=== PATIENT | female | born 1940 | race Two or more races ===

== ENCOUNTER → 2019-07-19 | Outpatient (CLI) | payer OTHER ==
[~2019-07-19] MED LIST: ALBU3IS INH; ALBU90OI; ALBU90OI INH; ALBUIS; ALEN70; ALPR.25; ALPR.25 PO; ALPR.5; ALPR.5 PO; ALTACE PO; AMLO10 PO; AMLO5 PO; ASPI81CH PO; Alprazolam0.5 MG PO; BUDE6HFA; BUDE6HFA INH; CEPH500 PO; CHOL10002 PO; CLOB.05TC TOP; DELTASONE20 MG PO; DOC250 PO; DOCU100 PO; ENOX40I SC; ERGO400; ERGO400 PO; FISH1000 PO; HYDR1TAB94 PO; LEVO750 PO; LOSA50 PO; METF500; METF500 PO; MULTI VITAMIN1 EACH PO; MULVITMIND PO; NASACORT10.8 ML; OXYC5 PO; PARO20 PO; PSETRI; Pyridium200 MG PO; RAMI5; RAMI5 PO; RXPRED10; SIMV10 PO; TIOT18 IH; TRIHYD253A; VITAMIN D3 PO; WARF4 PO
[2019-07-19 13:05] LABS: BASOPHILS ABSOLUTE AUTO 0.12 K/mm3 (0.00-0.23); BASOPHILS PERCENT AUTO 1 % (0-2); EOSINOPHILS ABSOLUTE AUTO 1.23 K/mm3 (0.00-0.68); EOSINOPHILS PERCENT AUTO 12 % (0-6); Hematocrit 35.8 % (33.0-51.0); Hemoglobin 11.9 g/dL (11.5-16.0); IMMATURE GRAN ABSOLUTE AUTO 0.03 K/mm3 (0.00-0.10); IMMATURE GRAN PERCENT AUTO 0 % (0-1); LYMPHOCYTES ABSOLUTE AUTO 2.24 K/mm3 (0.84-5.20); LYMPHOCYTES PERCENT AUTO 23 % (21-46); MONOCYTES ABSOLUTE AUTO 0.92 K/mm3 (0.16-1.47); MONOCYTES PERCENT AUTO 9 % (4-13); Mean Corpuscular HGB 29.2 pg (26.0-34.0); Mean Corpuscular HGB Conc 33.2 g/dL (31.5-36.5); Mean Corpuscular Volume 88 fL (80-100); Mean Platelet Volume 9.2 fL (9.1-12.4); NEUTROPHILS ABSOLUTE AUTO 5.39 K/mm3 (1.96-9.15); NEUTROPHILS PERCENT AUTO 54 % (41-73); Platelet Count 350 K/mm3 (150-400); RDW Coefficient Variation 13.4 % (11.7-14.2); RDW Standard Deviation 42.7 fL (35.1-46.3); Red Blood Cell Count 4.08 M/mm3 (3.80-5.20); White Blood Cell Count 9.93 K/mm3 (4.00-11.30)
[2019-07-19 13:15] LABS: Alanine Aminotransfer (ALT/SGP 20 U/L (12-78); Albumin, Blood 3.9 g/dL (3.4-5.0); Alk Phos 74 U/L (40-126); Anion Gap 12 mmol/L (6-16); Aspartate Aminotrans (AST/SGOT 20 U/L (12-37); Bilirubin, Total 0.3 mg/dL (0.1-1.0); Blood Urea Nitrogen 14 mg/dL (8-24); Bun/Creatinine Ratio 18.4 (12.0-20.0); CO2, Blood 25 mmol/L (21-32); Calcium, Blood 9.5 mg/dL (8.5-10.1); Chloride, Blood 99 mmol/L (98-108); Creatinine, Blood 0.76 mg/dL (0.40-1.00); Globulin, Blood 3.8 g/dL (2.2-4.0); Glomerular Filtration Rate >60 (60-); Glucose, Blood 94 mg/dL (70-99); Potassium, Blood 4.1 mmol/L (3.5-5.5); Sodium, Blood 136 mmol/L (136-145); Total Protein, Blood 7.7 g/dL (6.4-8.2)
== END ==
LOC: LAB SHORT 13:00 → LAB EV 13:00
PROVIDERS: Emergency Medicine
DX: J44.9 Chronic obstructive pulmonary disease, unspecified (principal)
CPT/HCPCS: 80053; 85025

== ENCOUNTER → 2021-02-02 | Outpatient (CLI) | payer OTHER ==
[2021-02-02 20:10] LABS: Alanine Aminotransfer (ALT/SGP 24 U/L (12-78); Albumin, Blood 4.1 g/dL (3.4-5.0); Albumin/Globulin Ratio 1.1 (0.8-1.8); Alk Phos 73 U/L (50-136); Anion Gap 9 mmol/L (6-16); Aspartate Aminotrans (AST/SGOT 19 U/L (12-37); Bilirubin, Total 0.4 mg/dL (0.1-1.0); Blood Urea Nitrogen 13 mg/dL (8-24); Bun/Creatinine Ratio 19.5 (12.0-20.0); CHOL/HDL RATIO 2.1; CO2, Blood 24 mmol/L (21-32); Calcium, Blood 9.4 mg/dL (8.5-10.1); Chloride, Blood 102 mmol/L (98-108); Cholesterol 199 mg/dL (50-200); Creatinine, Blood 0.67 mg/dL (0.40-1.00); Globulin, Blood 3.9 g/dL (2.2-4.0); Glomerular Filtration Rate >60 (60-); Glucose, Blood 95 mg/dL (70-99); HDL Cholesterol 93 mg/dL (>39); LDL/HDL RATIO 0.9; Low Density Lipoprotein Chol 85 mg/dL (0-110); Potassium, Blood 4.4 mmol/L (3.5-5.5); Sodium, Blood 135 mmol/L (136-145); Triglycerides 104 mg/dL (30-160); Very Low Density Lipoprot Chol 20 mg/dL (6-32)
[2021-02-03 11:55] LABS: BASOPHILS PERCENT AUTO 1 % (0-2); EOSINOPHILS PERCENT AUTO 4 % (0-6); Hematocrit 37.2 % (33.0-51.0); Hemoglobin 12.1 g/dL (11.5-16.0); IMMATURE GRAN ABSOLUTE AUTO 0.07 K/mm3 (0.00-0.10); IMMATURE GRAN PERCENT AUTO 1 % (0-1); LYMPHOCYTES ABSOLUTE AUTO 1.76 K/mm3 (0.84-5.20); LYMPHOCYTES PERCENT AUTO 15 % (21-46); MONOCYTES ABSOLUTE AUTO 0.87 K/mm3 (0.16-1.47); MONOCYTES PERCENT AUTO 8 % (4-13); Mean Corpuscular HGB 28.7 pg (26.0-34.0); Mean Corpuscular HGB Conc 32.5 g/dL (31.5-36.5); Mean Corpuscular Volume 88 fL (80-100); Mean Platelet Volume 9.8 fL (9.1-12.4); NEUTROPHILS PERCENT AUTO 72 % (41-73); Platelet Count 278 K/mm3 (150-400); RDW Coefficient Variation 13.4 % (11.7-14.2); RDW Standard Deviation 43.4 fL (35.1-46.3); Red Blood Cell Count 4.21 M/mm3 (3.80-5.20)
== END | disposition home or self-care (01) ==
LOC: LAB 17:40 → LAB SHORT 17:40 → LAB FUT 02-02 15:40
PROVIDERS: Nurse Practitioner Family
DX: E11.51 Type 2 diabetes mellitus with diabetic peripheral angiopathy without gangrene (principal); E11.69 Type 2 diabetes mellitus with other specified complication
CPT/HCPCS: 80053; 80061; 82043; 83036; 85025

== ENCOUNTER → 2022-08-03 | Outpatient (CLI) | payer OTHER ==
[2022-08-03 16:58] LABS: U Amphetamine Screen Not Detected; U Barbituate Screen Not Detected; U Benzodiazapine Screen DETECTED; U Buprenorphine Screen Not Detected; U Cannabinoids Screen Not Detected; U Cocaine Screen Not Detected; U Methadone Screen Not Detected; U Methamphetamine Screen Not Detected; U Opiates Screen DETECTED; U Oxycodone Screen Not Detected; U Phencyclidine Screen Not Detected; U Propoxyphene Screen Not Detected
== END | disposition home or self-care (01) ==
LOC: LAB SHORT 13:27 → LAB 13:27
PROVIDERS: Physician Assistant
DX: Z51.81 Encounter for therapeutic drug level monitoring (principal); Z79.899 Other long term (current) drug therapy

== ENCOUNTER → 2022-12-18 | Outpatient (CLI) | payer OTHER ==
[2022-12-18 18:28] LABS: BASOPHILS ABSOLUTE AUTO 0.08 K/mm3 (0.00-0.23); BASOPHILS PERCENT AUTO 1 % (0-2); EOSINOPHILS ABSOLUTE AUTO 0.55 K/mm3 (0.00-0.68); EOSINOPHILS PERCENT AUTO 7 % (0-6); Hematocrit 34.1 % (33.0-51.0); Hemoglobin 11.5 g/dL (11.5-16.0); IMMATURE GRAN ABSOLUTE AUTO 0.02 K/mm3 (0.00-0.10); IMMATURE GRAN PERCENT AUTO 0 % (0-1); LYMPHOCYTES PERCENT AUTO 18 % (21-46); MONOCYTES ABSOLUTE AUTO 0.66 K/mm3 (0.16-1.47); MONOCYTES PERCENT AUTO 8 % (4-13); Mean Corpuscular HGB 29.9 pg (26.0-34.0); Mean Corpuscular HGB Conc 33.7 g/dL (31.5-36.5); Mean Corpuscular Volume 89 fL (80-100); Mean Platelet Volume 9.5 fL (9.1-12.4); NEUTROPHILS ABSOLUTE AUTO 5.52 K/mm3 (1.96-9.15); NEUTROPHILS PERCENT AUTO 66 % (41-73); Platelet Count 268 K/mm3 (150-400); RDW Standard Deviation 41.9 fL (35.1-46.3); Red Blood Cell Count 3.84 M/mm3 (3.80-5.20); White Blood Cell Count 8.33 K/mm3 (4.00-11.30)
[2022-12-18 19:45] LABS: Very Low Density Lipoprot Chol 14 mg/dL (6-32)
[2022-12-18 20:06] LABS: Alanine Aminotransfer (ALT/SGP 21 U/L (12-78); Albumin, Blood 3.8 g/dL (3.4-5.0); Albumin/Globulin Ratio 1.1 (0.8-1.8); Alk Phos 63 U/L (50-136); Anion Gap 5 mmol/L (6-16); Aspartate Aminotrans (AST/SGOT 20 U/L (12-37); Bilirubin, Total 0.3 mg/dL (0.1-1.0); Blood Urea Nitrogen 14 mg/dL (8-24); Bun/Creatinine Ratio 14.4 (12.0-20.0); CHOL/HDL RATIO 1.7; CO2, Blood 23 mmol/L (21-32); Calcium, Blood 9.2 mg/dL (8.5-10.1); Chloride, Blood 102 mmol/L (98-108); Cholesterol 187 mg/dL (50-200); Creatinine, Blood 0.97 mg/dL (0.40-1.00); Globulin, Blood 3.6 g/dL (2.2-4.0); Glomerular Filtration Rate 58 (60-); Glucose, Blood 101 mg/dL (70-99); HDL Cholesterol 111 mg/dL (>39); LDL/HDL RATIO 0.6; Low Density Lipoprotein Chol 62 mg/dL (0-110); Potassium, Blood 4.7 mmol/L (3.5-5.5); Sodium, Blood 130 mmol/L (136-145); Total Protein, Blood 7.4 g/dL (6.4-8.2); Triglycerides 72 mg/dL (30-160)
== END ==
LOC: LAB 16:12 → LAB SHORT 16:12
PROVIDERS: Nurse Practitioner Family
DX: I10 Essential (primary) hypertension (principal); R73.03 Prediabetes; E78.2 Mixed hyperlipidemia
CPT/HCPCS: 80053; 80061; 83036; 85025

== ENCOUNTER 2024-04-09 16:51 | Observation (INO) | payer OTHER ==
[~2024-04-09] VITALS: Ht 165.1 cm; Wt 68.7 kg
[~2024-04-09 16:51] MED LIST changes: +ALPRAZOLAM0.5 M1 PO; +AMLODIPINE BESYL5 MG PO; +Acetaminophen325 M1 PO; +Aspir 8181 MG PO; +BUDESONIDE0.5 MG/2 M INH; +CELE100 PO; +CYMBALTA20 M2 PO; +HYDROCODONE-AC1 EAC7 PO; +IPRAT-ALBUT 0.5-3 ML; +MELO7.5 PO; +MIRALAX17 GM PO; +SENN187 PO; +VITAMIN D310 MC4
[2024-04-09 18:02] LABS: BASOPHILS ABSOLUTE AUTO 0.06 K/mm3 (0.00-0.23); BASOPHILS PERCENT AUTO 1 % (0-2); EOSINOPHILS PERCENT AUTO 3 % (0-6); Hematocrit 31.9 % (33.0-51.0); Hemoglobin 11.6 g/dL (11.5-16.0); IMMATURE GRAN ABSOLUTE AUTO 0.05 K/mm3 (0.00-0.10); IMMATURE GRAN PERCENT AUTO 1 % (0-1); LYMPHOCYTES ABSOLUTE AUTO 1.44 K/mm3 (0.84-5.20); LYMPHOCYTES PERCENT AUTO 13 % (21-46); MONOCYTES ABSOLUTE AUTO 0.95 K/mm3 (0.16-1.47); MONOCYTES PERCENT AUTO 9 % (4-13); Mean Corpuscular HGB Conc 36.4 g/dL (31.5-36.5); Mean Corpuscular Volume 82 fL (80-100); Mean Platelet Volume 8.6 fL (9.1-12.4); NEUTROPHILS PERCENT AUTO 75 % (41-73); Platelet Count 454 K/mm3 (150-400); RDW Coefficient Variation 13.7 % (11.7-14.2); RDW Standard Deviation 40.5 fL (35.1-46.3); Red Blood Cell Count 3.87 M/mm3 (3.80-5.20)
[2024-04-09 18:36] LABS: Alanine Aminotransfer (ALT/SGP 27 U/L (12-78); Albumin, Blood 3.5 g/dL (3.4-5.0); Alk Phos 78 U/L (50-136); Anion Gap 13 mmol/L (3-11); Aspartate Aminotrans (AST/SGOT 34 U/L (12-37); Bilirubin, Total 0.5 mg/dL (0.1-1.0); Blood Urea Nitrogen 10 mg/dL (8-24); Bun/Creatinine Ratio 21.1 (12.0-20.0); CO2, Blood 25 mmol/L (21-32); Calcium, Blood 9.5 mg/dL (8.5-10.1); Chloride, Blood 87 mmol/L (98-108); Creatinine, Blood 0.47 mg/dL (0.40-1.00); Globulin, Blood 3.4 g/dL (2.2-4.0); Glomerular Filtration Rate 94 (60-); Glucose, Blood 106 mg/dL (70-99); Potassium, Blood 3.2 mmol/L (3.5-5.5); Sodium, Blood 122 mmol/L (136-145); Total Protein, Blood 6.9 g/dL (6.4-8.2)
[2024-04-09] MEDS ORDERED: NS 1,000 ML IV SCH (23:35)
[2024-04-09] MEDS ORDERED: HYDROcodone 10-APAP 325 TAB PO ONE (23:35)
[2024-04-09 23:44] LABS: Source, Urine Clean Catch
[2024-04-10 00:05] LABS: Bilirubin, Urine Neg (Neg); Blood, Urine Neg (Neg); Glucose Qualitative, Urine Neg (Neg); Ketones, Urine 2+ (Neg); Leukocyte Esterase, Urine Neg (Neg); Nitrite, Urine Neg (Neg); Protein, Urine 2+ (Neg); Specific Gravity, Urine 1.015 (1.003-1.022); Urobilinogen, Urine NORM (Normal)
[2024-04-10 00:23] LABS: U Amphetamine Screen Not Detected; U Barbituate Screen Not Detected; U Benzodiazapine Screen Not Detected; U Buprenorphine Screen Not Detected; U Cannabinoids Screen Not Detected; U Cocaine Screen Not Detected; U Methadone Screen Not Detected; U Methamphetamine Screen Not Detected; U Opiates Screen DETECTED; U Oxycodone Screen Not Detected; U Phencyclidine Screen Not Detected
[2024-04-10 00:24] LABS: Appearance, Urine Clear (Clear); Color, Urine Yellow (P-Yellow)
[2024-04-10 00:30] LABS: Ethanol (Alcohol), Blood, Med <3 mg/dL; Magnesium, Blood 1.6 mg/dL (1.6-2.4); Phosphorus, Blood 3.7 mg/dL (2.5-4.9); Thyroid Stimulating Hormone 0.957 uIU/mL (0.360-4.800)
[2024-04-10 00:32] LABS: Bacteria Mod /hpf; Red Blood Cells, Urine 0-2 /hpf (0-2); Squamous Epithelial Cells Few /hpf (Few)
[2024-04-10] MEDS ORDERED: Potassium Chloride 20 MEQ/15 ML UDC PO ONE (01:15)
[2024-04-10] MEDS ORDERED: Magnesium Sulf 2 GM/Water 50ML 50 ML IV ONE (01:15)
[2024-04-10 02:00] LABS: Bun/Creatinine Ratio 20.1 (12.0-20.0); Calcium, Blood 8.9 mg/dL (8.5-10.1); Creatinine, Blood 0.4 mg/dL (0.40-1.00)
[2024-04-10] MEDS ORDERED: FLU VACC TS2024-25(6MOS UP)/PF 45 MCG/0.5 ML SYRINGE IM SCH (03:50)
[2024-04-10] MEDS ORDERED: Acetaminophen 325 MG TABLET PO PRN (03:50)
[2024-04-10] MEDS ORDERED: Ondansetron HCl 2 MG / ML 2ML Vial IV PRN (03:50)
[2024-04-10 06:14] LABS: BASOPHILS ABSOLUTE AUTO 0.05 K/mm3 (0.00-0.23); BASOPHILS PERCENT AUTO 1 % (0-2); EOSINOPHILS ABSOLUTE AUTO 0.37 K/mm3 (0.00-0.68); EOSINOPHILS PERCENT AUTO 4 % (0-6); Hematocrit 30.3 % (33.0-51.0); Hemoglobin 10.6 g/dL (11.5-16.0); IMMATURE GRAN ABSOLUTE AUTO 0.02 K/mm3 (0.00-0.10); IMMATURE GRAN PERCENT AUTO 0 % (0-1); LYMPHOCYTES ABSOLUTE AUTO 1.23 K/mm3 (0.84-5.20); LYMPHOCYTES PERCENT AUTO 15 % (21-46); MONOCYTES ABSOLUTE AUTO 0.88 K/mm3 (0.16-1.47); MONOCYTES PERCENT AUTO 10 % (4-13); Mean Corpuscular HGB 29.2 pg (26.0-34.0); Mean Corpuscular Volume 84 fL (80-100); Mean Platelet Volume 8.3 fL (9.1-12.4); NEUTROPHILS ABSOLUTE AUTO 5.91 K/mm3 (1.96-9.15); NEUTROPHILS PERCENT AUTO 70 % (41-73); Platelet Count 412 K/mm3 (150-400); RDW Standard Deviation 42.7 fL (35.1-46.3); Red Blood Cell Count 3.63 M/mm3 (3.80-5.20); White Blood Cell Count 8.46 K/mm3 (4.00-11.30)
[2024-04-10 06:40] LABS: Albumin, Blood 2.8 g/dL (3.4-5.0); Albumin/Globulin Ratio 0.9 (0.8-1.8); Bilirubin, Total 0.4 mg/dL (0.1-1.0); Bun/Creatinine Ratio 14.6 (12.0-20.0); Calcium, Blood 8.7 mg/dL (8.5-10.1); Creatinine, Blood 0.34 mg/dL (0.40-1.00); Globulin, Blood 3.1 g/dL (2.2-4.0); Potassium, Blood 3.6 mmol/L (3.5-5.5); Total Protein, Blood 5.9 g/dL (6.4-8.2)
[2024-04-10] MEDS ORDERED: Potassium Chloride 20 MEQ TabCR PO ONE (07:00)
[2024-04-10] MEDS ORDERED: Ipratropium/Albuterol SulF 2.5-0.5MG/3 ML Amp INH PRN (07:35)
[2024-04-10] MEDS ORDERED: Budesonide 0.5 MG/2 ML RESP INH SCH (07:45)
[2024-04-10] MEDS ORDERED: Albuterol HFA200 ACT/6.7 GM INH INH PRN (07:45)
[2024-04-10] MEDS ORDERED: DULoxetine HCL 20 MG Cap DR PO SCH (09:00)
[2024-04-10] MEDS ORDERED: Polyethylene Glycol 3350 17 gm PO SCH (09:00)
[2024-04-10] MEDS ORDERED: Atorvastatin 10 MG Tab PO SCH (09:00)
[2024-04-10] MEDS ORDERED: Aspirin 81 MG TabEC PO SCH (09:00)
[2024-04-10] MEDS ORDERED: AmLODIPine Besylate 5 MG Tab PO SCH (09:00)
[2024-04-10] MEDS ORDERED: Losartan Potassium 50 MG Tab PO SCH (09:00)
[2024-04-10] MEDS ORDERED: Docusate Sodium 100 MG Cap PO SCH (09:00)
[2024-04-10] MEDS ORDERED: Sennosides 8.6 MG Tab PO SCH (09:00)
[2024-04-10] MEDS ORDERED: Enoxaparin 40 MG/0.4 ML SYR SC SCH (09:00)
[2024-04-10] MEDS ORDERED: HYDROcodone 10-APAP 325 TAB PO PRN (11:10)
[2024-04-10 14:16] VITALS: BP 146/66
[2024-04-10 19:35] VITALS: BP 155/60
--- NOTE | 2024-04-10 20:00 | NUR ---
LATE ENTRY SHIFT SUMMARY: CRYSTAL IS A&OX4. VSS, NO ACUTE EVENTS SINCE ADMISSION TO THE FLOOR THIS SHIFT. SHE IS A ONE TO TWO PERSON ASSIST TO THE BEDSIDE COMMODE WITH THE FWW AND GAIT BELT. SHE IS TOLERATING PO INTAKE WELL BUT REPORTS POOR APPETITE. SHE HAS BEEN USING THE CALL LIGHT APPROPRAITELY. SHE IS LYING IN BED WITH THE CALL LIGHT IN REACH, BED IN LOWEST POSITION, BED ALARM ON. SHE IS ABLE TO TURN AND REPOSITION HERSELF IN BED WITH NO ASSISTANCE. IV TO L AC PATENT. REPORT WAS GIVEN TO LACE WINDER RN.
[2024-04-11 05:15] VITALS: BP 199/90
--- NOTE | 2024-04-11 06:13 | NUR ---
Shift Summary Pt admitted to this floor d/t recent fall at home. She states she woke up on the floor and isn't sure how she got there. She takes Icard at home and occasionally Xanax for anxiety and tries not to mix this two. She has a fractured pelvis which she had been at for PT, recent x-ray still shows the fx and her hip is very painful. She has been on bedrest and using the bedpan for continent voids, per dayshift report she got up to the BS for a BM. She is on tele to rule out heart related syncope, no events t/o the night. Pt woke up this AM with a painful neck, medicated per emar and applied heating pad.
[2024-04-11 06:20] VITALS: BP 149/65
[2024-04-11 06:55] LABS: Bun/Creatinine Ratio 13.7 (12.0-20.0); Calcium, Blood 9.1 mg/dL (8.5-10.1); Creatinine, Blood 0.44 mg/dL (0.40-1.00); Potassium, Blood 3.9 mmol/L (3.5-5.5)
[2024-04-11 07:26] VITALS: BP 158/55
[2024-04-11] MEDS ORDERED: LORazepam 0.5 MG Tab PO ONE (10:45)
[2024-04-11] MEDS ORDERED: NS 1,000 ML IV SCH (13:20)
[2024-04-11 15:55] VITALS: BP 154/65
--- NOTE | 2024-04-11 16:05 | NUR ---
RECEIVED CALL FROM WALLPAPER INSPECTOR STATING PT WAS BEING DISCHARGED HOME. DISCUSSED WITH WALLPAPER INSPECTOR THAT PT DOES NOT HAVE ANY ASSISTANCE AVAILABLE AT HOME TODAY SINCE HER DAUGHTER WORKS OUT OF TOWN AND HER SON-IN-LAW IS SUFFERING FROM DEBILITATING MEDICAL PROBLEMS. CALLED PT'S DAUGHTER, MONTY, AND DISCUSSED CIRCUMSTANCES OF PENDING DISCHARGE. MONTY EXPRESSED GRAVE CONCERN STATING THAT SHE IS CURRENTLY AT WORK IN [place] AND WILL NOT BE HOME TODAY AND THAT HER IS UNABLE TO PROVIDE ANY CARE FOR ANYONE OTHER THAN HIMSELF AND WOULD NOT BE ABLE TO EVEN ASSIST PT IN OR OUT OF A PERSONAL VEHICLE. MONTY DID SAY SHE WOULD BE BACK IN [place] TOMORROW. CALLED HOSPITALIST AND UPDATED, HOSPITALIST GAVE VERBAL OK FOR PT TO STAY IN HOSPITAL TONIGHT FOR DISCHARGE TOMORROW. DISCUSSED RETIREMENT CARE MEDICAID WITH MONTY WHO REQUESTED INFORMATION. UPDATED DOOR MACHINE OPERATOR.
--- NOTE | 2024-04-11 17:15 | NUR ---
SHIFT SUMMARY: CRYSTAL IS A&OX4 WITH SOME INTERMITTENT CONFUSION, ESPECIALLY AFTER THE DOSE OF XANAX. ZIO PATCH IN PLACE, PLACED THIS AFTERNOON PER HOSPITALIST ORDER D/T LACK OF AVAILABILITY OF HEART CENTER TOMORROW. PT IS TO BE DISCHARGED HOME TOMORROW, HER DAUGHTER IS COMING TO PROVIDE TRANSPORATION AND ENSURE PT HAS APPROPRIATE CARE AT HOME. SHE IS TOLERATING PO INTAKE WELL AND REPORTS HOPEFUL ANTICIPATION WITH THE FOOD THAT SHE REQUESTED FOR DINNER. SHE REPORTS MINIMAL PAIN CONTROL WITH MEDICATIONS PER MAR. DRESSING REPLACED TO SKIN TEAR ON RLE WHICH WAS PRESENT ON ADMISSION. ATTENDS IN PLACE, PT WITH MIXED INCONTINENCE, SMALL BM TODAY. SHE IS LYING IN BED WITH THE CALL LIGHT IN REACH. WILL GIVE REPORT TO LUNCHROOM AIDE RN.
--- NOTE | 2024-04-11 18:50 | NUR ---
WHILE SWALLOWING PAIN MEDICATION, PT HAD AN EPISODE OF COUGHING AND SPIT OUT PART OF HER WATER. PT WAS ABLE TO CLEAR HER AIRWAY AND REQUESTED HER RESCUE INHALER. CALLED RT AND REQUESTED, RT STATED THEY WOULD COME TO SEE PT SOON POSSIBLE. PT DENIED ANY OTHER NEEDS AT THIS TIME. SHE IS SITTING UP ON THE SIDE OF THE BED, ABLE TO CONVERSE, COUGHING HAS SUBSIDED.
[2024-04-11 19:34] VITALS: BP 138/63
--- NOTE | 2024-04-11 21:23 | NUR ---
CALLED TO ROOM BY ACCOUNT RESOLUTION ANALYST FOR LEAKING IV. PT IV LEAKING ONTO FLOOR. IV PULLED AND SITE COVERED WITH GAUZE AND COBAN. WILL RELAY NEED FOR NEW IV TO PT'S MAIN RN.
[2024-04-12 04:00] VITALS: BP 172/70
--- NOTE | 2024-04-12 05:38 | NUR ---
Shift Summary Pt AOx4 with forgetfulness and moments of confusion. She had increased frequency of voids tonight, voiding around 10 times. She is 1 assist to the BSC with a FWW, she requires assistance managing her attends. She has a painful hip and requests pain medicine, sometimes forgetting when she took her last dose. Medicated per EMAR and used pillows/heating pad to create comfort. Plan is to go home with home health today wearing a ZIO patch to monitor her heart for any causes of syncope.
[2024-04-12 07:12] VITALS: BP 160/56
[2024-04-12 15:16] VITALS: BP 135/66
--- NOTE | 2024-04-12 18:12 | NUR ---
SHIFT SUMMARY PT A&OX4. PT ADMITTED DUE TO SYNCOPE. [place] [facility] [place] AND [place] BM. PT REPORTED NO DIZZINESS. PT REPORTS PELVIC PAIN, PAIN DUE TO FX PREVIOUS TO ADMISSION. PAIN MANAGED PER EMAR AND REST. PT HAS FAMILY AT BEDSIDE. PT EATING ADEQUATELY. PT COOROPERATIVE AND PLEASANT. VSS. NO ACUTE CHANGES DURING SHIFT. PLAN IS TO DISCHARGE TO [facility] ONCE INSURANCE IS AUTHORIZED.
[2024-04-12 19:11] VITALS: BP 160/74
[2024-04-13 03:33] VITALS: BP 159/75
--- NOTE | 2024-04-13 04:02 | NUR ---
SHIFT SUMMARY PT IS A&O X4, ABLE TO MAKE HER NEEDS KNOWN. NO ACUTE EVENTS DURING THIS SHIFT. PT C/O PELVIC PAIN 12/09, MEDICATED WITH TYLENOL.VSS. PT TRANSFERRING INDEPENDENTLY FROM HOSPITAL BED TO [facility] COMMODE. PT IS 1-PERSON ASSIST WITH FWW TO THE RESTROOM. BED AT THE LOWEST POSITION, CALL LIGHT W/I REACH.
[2024-04-13 07:32] VITALS: BP 168/77
[2024-04-13 08:30] LABS: Hematocrit 32.9 % (33.0-51.0); Hemoglobin 11.3 g/dL (11.5-16.0); Mean Corpuscular HGB Conc 34.3 g/dL (31.5-36.5); Mean Corpuscular Volume 85 fL (80-100); Mean Platelet Volume 8.6 fL (9.1-12.4); Platelet Count 495 K/mm3 (150-400); RDW Standard Deviation 43.7 fL (35.1-46.3); Red Blood Cell Count 3.89 M/mm3 (3.80-5.20); White Blood Cell Count 9.18 K/mm3 (4.00-11.30)
[2024-04-13 08:52] LABS: Bun/Creatinine Ratio 8.2 (12.0-20.0); Calcium, Blood 9.5 mg/dL (8.5-10.1); Creatinine, Blood 0.36 mg/dL (0.40-1.00); Potassium, Blood 3.6 mmol/L (3.5-5.5)
[2024-04-13 15:14] VITALS: BP 144/70
--- NOTE | 2024-04-13 18:03 | NUR ---
SHIFT SUMMARY PT A&OX4. PT ADMITTED DUE TO SYNCOPE. PT REPORTS NO LIGHT HEADEDNESS OR DIZZINESS. PT AMBULATES WITH WALKER. PT REPORTS PELVIC PAIN. PT MEDICATED PER EMAR. PT HAD RECENT PELVIC FX. PT HAS URGENCY FREQUENCY WITH VOIDING. VSS. NO ACUTE CHANGES DURING SHIFT. PT ON RA. PLAN TO DISCHARGE TO SNF TOMORROW. PT EATING ADEQUATELY.
[2024-04-13 19:22] VITALS: BP 149/73
[2024-04-14 00:29] LABS: Source, Urine Clean Catch
[2024-04-14 00:33] LABS: Bilirubin, Urine Neg (Neg); Blood, Urine Neg (Neg); Glucose Qualitative, Urine Neg (Neg); Ketones, Urine Neg (Neg); Leukocyte Esterase, Urine Neg (Neg); Nitrite, Urine Neg (Neg); Protein, Urine 1+ (Neg); Urobilinogen, Urine NORM (Normal)
[2024-04-14 00:53] LABS: Appearance, Urine Clear (Clear); Color, Urine Yellow (P-Yellow)
--- NOTE | 2024-04-14 01:17 | NUR ---
, ON-CALL HOSPITALIST CONTACTED D/T PT URGENCY>10 X BEFORE MIDNIGHT TO VOID. BLADDER SCANNER SHOWS >300MLS POST VOID. NEW ORDER FOR STRAIGHT CATH X1, AND URINE CULTURE LAB RECEIVED. ENTERED TO [employer] ORDERED BY THIS SOLE FILLER. PT WAS STRAIGHT CATH'D X1 W/O ANY COMPLAINTS, AND SAMPLE WAS SENT TO THE LAB APPROXIMATELY 0045.
--- NOTE | 2024-04-14 03:53 | NUR ---
SHIFT SUMMARY PT HAS URGENCY IN URINATION>15 X @BEDSIDE COMMODE DURING THIS SHIFT. POST VOID BLADDER SCANS SHOWING >200MLS, AND 290 MLS. 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 1-PERSON ASSIST TO BEDSIDE COMMODE, PT SHAKY AND CONFUSED DURING HS HRS. PT DENIES ANXIETY. PT EDUCATED ON DEEP BREATHING TECHNIQUES, VSS. ONE TIME ORDER STRAIGHT CATH AND LAB ORDER COMPLETED FOR UA. PROTEIN IN URINE. @HS PT C/O PELVIC PAIN, MEDICATED ORDERED WITH TYLENOL PRN PO X1. NO ACUTE EVENTS/DISTRESS NOTED DURING THIS SHIFT. BED AT THE LOWEST POSITION, CALL LIGHT W/I REACH, BED ALARM FOR SAFETY. PT IS ABLE TO MAKE HER NEEDS KNOWN. A&O X3-4.
[2024-04-14 04:02] VITALS: BP 139/61
[2024-04-14 07:25] LABS: BASOPHILS ABSOLUTE AUTO 0.06 K/mm3 (0.00-0.23); BASOPHILS PERCENT AUTO 1 % (0-2); EOSINOPHILS ABSOLUTE AUTO 0.31 K/mm3 (0.00-0.68); EOSINOPHILS PERCENT AUTO 5 % (0-6); Hematocrit 33.1 % (33.0-51.0); Hemoglobin 11.7 g/dL (11.5-16.0); IMMATURE GRAN ABSOLUTE AUTO 0.03 K/mm3 (0.00-0.10); IMMATURE GRAN PERCENT AUTO 0 % (0-1); LYMPHOCYTES ABSOLUTE AUTO 1.26 K/mm3 (0.84-5.20); LYMPHOCYTES PERCENT AUTO 19 % (21-46); MONOCYTES ABSOLUTE AUTO 0.74 K/mm3 (0.16-1.47); MONOCYTES PERCENT AUTO 11 % (4-13); Mean Corpuscular HGB 29.3 pg (26.0-34.0); Mean Corpuscular HGB Conc 35.3 g/dL (31.5-36.5); Mean Corpuscular Volume 83 fL (80-100); Mean Platelet Volume 8.4 fL (9.1-12.4); NEUTROPHILS PERCENT AUTO 64 % (41-73); Platelet Count 489 K/mm3 (150-400); RDW Coefficient Variation 13.9 % (11.7-14.2); RDW Standard Deviation 42.1 fL (35.1-46.3); Red Blood Cell Count 3.99 M/mm3 (3.80-5.20)
[2024-04-14 07:54] LABS: Bun/Creatinine Ratio 8.9 (12.0-20.0); Calcium, Blood 8.9 mg/dL (8.5-10.1); Creatinine, Blood 0.45 mg/dL (0.40-1.00); Potassium, Blood 3.5 mmol/L (3.5-5.5)
[2024-04-14 08:24] VITALS: BP 183/80
[2024-04-14] MEDS ORDERED: MELO7.5 PO (13:20)
[2024-04-14 15:47] LABS: Influenza A, PCR NEGATIVE (NEGATIVE); Influenza B, PCR NEGATIVE (NEGATIVE); Resp Syncytial Virus, PCR NEGATIVE (NEGATIVE); SARS-Cov-2 (COVID-19) PCR, MMC NEGATIVE (NEGATIVE)
[2024-04-14 15:57] VITALS: BP 144/74
--- NOTE | 2024-04-14 18:04 | NUR ---
SHIFT SUMMARY: PT A/O X4. PLEASANT AND COOPERATIVE WITH CARE. 1PA TO BSC USING FWW AND GB. C/O PAIN IN BACK AND PELVIS THIS SHIFT. MEDICATED PER EMAR WITH GOOD EFFECT. MIX UP WITH PT DISCHARGE THIS SHIFT. INSURANCE AUTH SENT FOR APPROVAL THIS SHIFT. PT LIKELY TO D/C TO [facility] WITHIN 2-3 DAYS. COVID SWAB SENT OFF WITH A NEGATIVE RESULT. NO C/O URINARY URGENCY/FREQUENCY THIS SHIFT. CALL LIGHT IN REACH. BED IN LLOWEST POSITION.
[2024-04-14 19:22] VITALS: BP 145/65
--- NOTE | 2024-04-15 03:49 | NUR ---
SHIFT SUMMARY NO ACUTE EVENTS DURING THIS SHIFT. MEDICATED X1 WITH TYLENOL PRN AND X1 WITH NORCO PRN FOR C/O PELVIC AND ARTHITIS PAIN. PT REPORTS EFFECTIVE. PT IS A&O X3-4, ABLE TO MAKE HER NEEDS KNOWN. BED ALARM FOR SAFETY, 1-PERSON ASSIST TO COMMODE. BED AT THE LOWEST POSITION, CALL LIGHT WITHIN REACH.
[2024-04-15 04:05] VITALS: BP 147/78
[2024-04-15 07:31] VITALS: BP 142/77
[2024-04-15 15:17] VITALS: BP 123/64
--- NOTE | 2024-04-15 18:14 | NUR ---
SHIFT SUMMARY: PT A&O X3. PLEASANT AND COOPERATIVE WITH CARE. NO ACUTE EVENTS THIS SHIFT. CONTINUES TO C/O PAIN IN PELVIC REGION. MEDICATED PER EMAR. ZIO PATCH IN PLACE. AWAITING INSURANCE AUTH FOR SNF. CALL LIGHT IN REACH. BED IN LOWEST POSITION.
[2024-04-15 19:46] VITALS: BP 130/55
[2024-04-16 02:53] VITALS: BP 135/56
--- NOTE | 2024-04-16 03:05 | NUR ---
SHIFT SUMMARY NO CHANGES OR ACUTE EVENTS DURING THIS SHIFT. PT IS A&O X3-4, ABLE TO MAKE HER NEEDS KNOWN AND COOPERATIVE WITH CARE. PRN NORCO FOR C/O 7/10 PELVIC PAIN, EFFECTIVE PER PT REPORT. BED AT THE LOWEST POSITION, BED ALARM FOR SAFETY. CALL LIGHT W/I REACH.
[2024-04-16 07:15] VITALS: BP 147/65
[2024-04-16 16:03] VITALS: BP 141/61
--- NOTE | 2024-04-16 18:16 | NUR ---
SHIFT SUMMARY: PT A&O X3-4. PLEASANT AND COOPERATIVE WITH CARE. 1PA c FWW AND GB. PT CONTINUES TO C/O 6-03/11 PAIN IN PELVIC REGION. MEDICATED PER EMAR WITH PRN NORCO AND TYLENOL. PT WORKED WELL WITH PT/OT THIS SHIFT. PLAN FOR PT TO D/C TO SNF WHEN INSURANCE AUTH IS APPROVED. CALL LIGHT IN REACH. BED IN LOWEST POSITION.
[2024-04-16 20:10] VITALS: BP 122/55
[2024-04-17 03:16] VITALS: BP 135/66
--- NOTE | 2024-04-17 04:05 | NUR ---
SHIFT SUMMARY PATIENT HAD NO ACUTE CHANGES. AXOX 3-4 AND ONE ASSIST TO BSC W/FWW GB. NO IV ACCESS ORDER. DENIES CHEST PAIN, SOB, AND N/V. VSS/AFEBRILE. ZIO PATCH IN PLACE. REPORTED BACK PAIN X ONE AND TYLENOL 650 MG GIVEN PER EMAR. COOPERATIVE WITH CARE. CALL LIGHT IN REACH. BED IN LOWEST POSITION. WILL CONTINUE TO MONITOR UNTIL DAY SHIFT NURSE ASSUMES CARE.
[2024-04-17 07:13] VITALS: BP 153/68
--- NOTE | 2024-04-17 08:10 | NUR ---
pt laying in bed awake, a/ox4, pleasant and cooperative with care, states she feels very weak and aches, lungs are clear dim t/o, resp even and unlabored, no cough noted, hrr, no edema noted, ppp+1, cap refill <3sec, vs stable, afebrile, btx4, abd flat soft nontender, voids without diff, does have pull ups in place, skin has scattered bruising no open wounds, marques ca, call light in reach.
[2024-04-17 12:17] LABS: Influenza A, PCR NEGATIVE (NEGATIVE); Influenza B, PCR NEGATIVE (NEGATIVE); Resp Syncytial Virus, PCR NEGATIVE (NEGATIVE); SARS-Cov-2 (COVID-19) PCR, MMC NEGATIVE (NEGATIVE)
--- NOTE | 2024-04-17 15:13 | NUR ---
pt being discharged to rehab, called report to Kelli MAURICIO, pt has no iv access, obtained a hard copy for [facility]cdonough to send, was put in the packet, copy in chart, left with all belongings via wheelchair with transport.
== END 2024-04-17 15:08 ==
LOC: ER 16:51 → MEDS 16:52 → ERHOLD 16:52 → MEDS 04-10 14:01 → ENPENDDIS 04-11 16:06 → EDPENDDIS 04-11 16:06 → MEDS 04-17 15:08
PROVIDERS: Emergency Medicine; Family Medicine; Internal Medicine; Physician Assistant; ADMIT Student in an Organized Health Care Education/Training Program
DX: R55 Syncope and collapse (principal); E87.1 Hypo-osmolality and hyponatremia; E87.6 Hypokalemia; I10 Essential (primary) hypertension; J44.9 Chronic obstructive pulmonary disease, unspecified; E11.9 Type 2 diabetes mellitus without complications; E78.5 Hyperlipidemia, unspecified; M19.90 Unspecified osteoarthritis, unspecified site; Z91.041 Radiographic dye allergy status; Z87.891 Personal history of nicotine dependence; Z66 Do not resuscitate; Z79.1 Long term (current) use of non-steroidal anti-inflammatories (NSAID); Z79.82 Long term (current) use of aspirin; Z79.899 Other long term (current) drug therapy; Z88.8 Allergy status to other drugs, medicaments and biological substances; Z59.89 Other problems related to housing and economic circumstances; Z90.49 Acquired absence of other specified parts of digestive tract
CPT/HCPCS: 0241U; 36415; 70450; 71045; 72170; 80048; 80053; 80320; 81001; 83735; 83930; 83935; 84100; 84300; 84443; 85025; 85027; 87086; 93005; 93010; 93246; 94640; 94664; 94760; 96365; 96372; 96372-59; 97110; 97116; 97162; 97167; 97530; 97530-CO; 97535; 97535-CO; 99285-25; A9270; G0378; J1650; J3475; J7030

== ENCOUNTER → 2024-05-04 | Outpatient (CLI) | payer OTHER ==
[2024-05-04 17:54] LABS: BASOPHILS ABSOLUTE AUTO 0.07 K/mm3 (0.00-0.23); BASOPHILS PERCENT AUTO 1 % (0-2); EOSINOPHILS ABSOLUTE AUTO 0.41 K/mm3 (0.00-0.68); EOSINOPHILS PERCENT AUTO 5 % (0-6); Hematocrit 31.4 % (33.0-51.0); Hemoglobin 11.3 g/dL (11.5-16.0); IMMATURE GRAN ABSOLUTE AUTO 0.03 K/mm3 (0.00-0.10); IMMATURE GRAN PERCENT AUTO 0 % (0-1); LYMPHOCYTES ABSOLUTE AUTO 2.23 K/mm3 (0.84-5.20); LYMPHOCYTES PERCENT AUTO 25 % (21-46); MONOCYTES ABSOLUTE AUTO 0.73 K/mm3 (0.16-1.47); MONOCYTES PERCENT AUTO 8 % (4-13); Mean Corpuscular Volume 83 fL (80-100); Mean Platelet Volume 9.3 fL (9.1-12.4); NEUTROPHILS ABSOLUTE AUTO 5.44 K/mm3 (1.96-9.15); NEUTROPHILS PERCENT AUTO 61 % (41-73); Platelet Count 390 K/mm3 (150-400); RDW Coefficient Variation 13.8 % (11.7-14.2); RDW Standard Deviation 42.2 fL (35.1-46.3); Red Blood Cell Count 3.77 M/mm3 (3.80-5.20); White Blood Cell Count 8.91 K/mm3 (4.00-11.30)
[2024-05-04 18:12] LABS: Magnesium, Blood 1.6 mg/dL (1.6-2.4)
[2024-05-04 18:16] LABS: Albumin, Blood 3.6 g/dL (3.4-5.0); Albumin/Globulin Ratio 1.1 (0.8-1.8); Bilirubin, Total 0.5 mg/dL (0.1-1.0); Bun/Creatinine Ratio 21.5 (12.0-20.0); Calcium, Blood 9.5 mg/dL (8.5-10.1); Creatinine, Blood 0.6 mg/dL (0.40-1.00); Globulin, Blood 3.2 g/dL (2.2-4.0); Potassium, Blood 4.4 mmol/L (3.5-5.5); Thyroid Stimulating Hormone 0.825 uIU/mL (0.360-4.800); Total Protein, Blood 6.8 g/dL (6.4-8.2)
== END ==
LOC: LAB 16:00 → LAB SHORT 16:00
PROVIDERS: Internal Medicine
DX: E11.9 Type 2 diabetes mellitus without complications (principal); E87.1 Hypo-osmolality and hyponatremia; E87.6 Hypokalemia; J44.9 Chronic obstructive pulmonary disease, unspecified; Z85.118 Personal history of other malignant neoplasm of bronchus and lung; Z85.3 Personal history of malignant neoplasm of breast
CPT/HCPCS: 80053; 83036; 83735; 84443; 85025

== ENCOUNTER → 2024-05-20 | Outpatient (CLI) | payer OTHER ==
[2024-05-20 17:57] LABS: Bun/Creatinine Ratio 15.7 (12.0-20.0); Calcium, Blood 9.2 mg/dL (8.5-10.1); Creatinine, Blood 0.57 mg/dL (0.40-1.00); Potassium, Blood 4.6 mmol/L (3.5-5.5)
== END ==
LOC: LAB SHORT 15:00 → LAB 15:00
PROVIDERS: Nurse Practitioner Family
DX: E87.1 Hypo-osmolality and hyponatremia (principal); E87.6 Hypokalemia
CPT/HCPCS: 80048

== ENCOUNTER 2024-07-31 01:05 | Emergency (ER) | payer OTHER ==
[~2024-07-31] VITALS: Ht 154.9 cm; Wt 60.3 kg
[2024-07-31 01:37] LABS: BASOPHILS ABSOLUTE AUTO 0.12 K/mm3 (0.00-0.23); BASOPHILS PERCENT AUTO 1 % (0-2); EOSINOPHILS ABSOLUTE AUTO 0.51 K/mm3 (0.00-0.68); EOSINOPHILS PERCENT AUTO 4 % (0-6); Hematocrit 31.7 % (33.0-51.0); Hemoglobin 11.4 g/dL (11.5-16.0); IMMATURE GRAN PERCENT AUTO 1 % (0-1); LYMPHOCYTES ABSOLUTE AUTO 1.69 K/mm3 (0.84-5.20); LYMPHOCYTES PERCENT AUTO 13 % (21-46); MONOCYTES ABSOLUTE AUTO 0.85 K/mm3 (0.16-1.47); MONOCYTES PERCENT AUTO 6 % (4-13); Mean Corpuscular HGB 31.3 pg (26.0-34.0); Mean Corpuscular Volume 87 fL (80-100); Mean Platelet Volume 8.5 fL (9.1-12.4); NEUTROPHILS PERCENT AUTO 76 % (41-73); Platelet Count 346 K/mm3 (150-400); RDW Coefficient Variation 13.2 % (11.7-14.2); RDW Standard Deviation 42.3 fL (35.1-46.3); Red Blood Cell Count 3.64 M/mm3 (3.80-5.20); White Blood Cell Count 13.37 K/mm3 (4.00-11.30)
[2024-07-31 01:53] LABS: Albumin, Blood 3.6 g/dL (3.4-5.0); Bilirubin, Total 0.3 mg/dL (0.1-1.0); Bun/Creatinine Ratio 13.7 (12.0-20.0); Calcium, Blood 9.2 mg/dL (8.5-10.1); Creatinine, Blood 0.44 mg/dL (0.40-1.00); Globulin, Blood 3.5 g/dL (2.2-4.0); Potassium, Blood 3.4 mmol/L (3.5-5.5); Total Protein, Blood 7.1 g/dL (6.4-8.2)
[2024-07-31] MEDS ORDERED: FentaNYL Citrate 50 MCG/ML 2 ML Injection IV ONE (02:30)
[2024-07-31] MEDS ORDERED: Potassium Chloride 20 MEQ TabCR PO ONE (02:35)
[2024-07-31] MEDS ORDERED: NS 1,000 ML IV SCH (02:40)
[2024-07-31] MEDS ORDERED: OxyCODONE 5 mg/Acetamin 325 mg TABLET PO ONE (07:05)
[2024-07-31 07:24] VITALS: BP 175/73
[2024-07-31] MEDS ORDERED: Ipratropium/Albuterol SulF 2.5-0.5MG/3 ML Amp INH ONE (08:05)
== END 2024-07-31 11:11 | disposition home or self-care (01) ==
LOC: ER 01:05
PROVIDERS: Emergency Medicine
DX: S40.011A Contusion of right shoulder, initial encounter (principal); F10.90 Alcohol use, unspecified, uncomplicated; W01.0XXA Fall on same level from slipping, tripping and stumbling without subsequent striking against object, initial encounter; Z87.891 Personal history of nicotine dependence; Z79.82 Long term (current) use of aspirin; Z79.51 Long term (current) use of inhaled steroids; Z79.899 Other long term (current) drug therapy; Z91.041 Radiographic dye allergy status; Z88.8 Allergy status to other drugs, medicaments and biological substances
CPT/HCPCS: 71045; 73030; 80053; 85025; 93005; 93010; 94640; 94664; 96361; 96374; 99284-25; A9270; J3010; J7030